=== PATIENT | male | born 1985 | race African-American/Black ===

== ENCOUNTER 2019-08-25 23:05 | Emergency (ER) | payer MEDICAID ==
[~2019-08-25] VITALS: Ht 177.8 cm; Wt 74.8 kg
[2019-08-25 23:25] VITALS: BP 107/66
--- NOTE | 2019-08-25 23:25 | NUR ---
ED Nurse Note: Pt walked into ED from home for c/o fever for the past two days. Pt has temp of 100.9 noted in the ED. Pt also reports cough, chest congestion and body aches. Pt is aaox4, no cardiac or respiratory distress noted, ambulatory with steady gait. Will continue to monitor.
[2019-08-26] MEDS ORDERED: TAMIFLU75 MG ORAL (00:23)
[2019-08-26] MEDS ORDERED: PREDNISONE50 MG ORAL (00:23)
[2019-08-26] MEDS ORDERED: ALBUTEROL SULF8.5 GM INH (00:23)
--- NOTE | 2019-08-26 00:23 | Emergency Room Report ---
History of Present Illness General Chief Complaint: Fever Source: Patient Present Illness HPI 34-year-old male presents with cough, congestion x2 days, body aches, no aggravating relieving factors severity is moderate, constant patient denies any chest pain, he is a smoker patient presents for evaluation Allergies: Coded Allergies: No Known Allergies (Unverified , 08/25/19) Patient History Past Medical History: see triage record Reviewed Nursing Documentation: PMH: Agreed; PSxH: Agreed Nursing Documentation-PMH Past Medical History: No History, Except For Hx Asthma: Yes - BRONCHITIS Review of Systems All Other Systems: negative except mentioned in HPI Physical Exam Vital Signs Date Time Temp Pulse Resp B/P (MAP) Pulse Ox O2 Delivery O2 Flow Rate FiO2 08/25/19 23:24 100.9 87 14 107/66 (80) 97 Room Air Sp02 EP Interpretation: reviewed, normal General Appearance: well appearing, no apparent distress, alert Head: normocephalic, atraumatic Eyes: bilateral eye PERRL, bilateral eye EOMI ENT: uvula midline, moist mucus membranes, nasal congestion Neck: supple, thyroid normal, supple/symm/no masses Respiratory: no respiratory distress, no retraction, no accessory muscle use, wheezing - mild Cardiovascular #1: normal peripheral pulses, regular rate, rhythm, no edema, no gallop, no murmur Gastrointestinal: non tender, soft, no guarding, no rebound Musculoskeletal: normal inspection Neurologic: alert, oriented x3 Psychiatric: mood/affect normal Skin: no rash, warm/dry Medical Decision Making Diagnostic Impression: Primary Impression: Influenza Additional Impression: COPD exacerbation ER Course 34-year-old male presents with cough, congestion, possible flu, possible COPD exacerbation, low suspicion for pneumonia, symptoms just started with body aches , patient in no acute distress was found sleeping in bed room Will provide patient with inhaler, steroids, Tamiflu Disposition home with return precautions Last Vital Signs Date Time Temp Pulse Resp B/P (MAP) Pulse Ox O2 Delivery O2 Flow Rate FiO2 08/25/19 23:25 87 14 Room Air 08/25/19 23:25 100.9 107/66 97 Disposition: HOME, SELF-CARE Condition: Stable Scripts Oseltamivir Phosphate (Tamiflu) 75 Mg Capsule 75 MG ORAL TWICE A DAY, #10 CAP Prov: Tavo Parson MD 08/26/19 Albuterol Sulfate* (ALBUTEROL SULFATE MDI*) 8.5 Gm Hfa.aer.ad 2 PUFF INH Q4H PRN for Shortness of Breath, #2 EA 0 Refills Prov: Tavo Parson MD 08/26/19 Prednisone* (PREDNISONE*) 50 Mg Tablet 50 MG ORAL DAILY, #5 TAB 0 Refills Prov: Tavo Parson MD 08/26/19 Referrals: [facility] Aj[facility] Br[facility] Patient Instructions: Chronic Obstructive Pulmonary Disease Exacerbation, Easy- to-Read, Influenza, Adult, [id number] Additional Instructions: The patient was provided with discharge instructions, notified to follow-up with a primary care doctor and or specialist in the next 24-48 hours, and to return to the ED if they have worsening of their symptoms. Please note that this report is being documented using DRAGON technology. This can lead to erroneous entry secondary to incorrect interpretation by the dictating instrument. Tavo Parson MD Aug 26, 2019 00:23
--- NOTE | 2019-08-26 01:10 | NUR ---
ED Nurse Note: Pt requested pain medication, PRIYA Parson aware of request and ordered Tylenol 1000mg and ibuprofen 600mg. PRIYA system was down at the time, order given verbally, medicatin over ride in pyxis, charge nurse aware. Pt given tylenol and ibuprofen.
[2019-08-26] MEDS ORDERED: Acetaminophen 500mg (ES) tab ORAL ONE ×2 (01:14→01:45)
[2019-08-26 01:15] VITALS: BP 110/65
--- NOTE | 2019-08-26 01:15 | NUR ---
ER DISCHARGE NOTE: Patient is cleared to be discharged per ERMD, pt is aox4, on room air, with stable vital signs. pt was given dc and prescription instructions, pt was able to verbalize understanding. pt is able to ambulate with steady gait. pt took all belongings.
== END 2019-08-26 01:15 | disposition home or self-care (01) ==
LOC: EMR 23:43
DX: J11.1 Influenza due to unidentified influenza virus with other respiratory manifestations (principal); J44.1 Chronic obstructive pulmonary disease with (acute) exacerbation; F17.200 Nicotine dependence, unspecified, uncomplicated
CPT/HCPCS: 99283